=== PATIENT | female | born 1985 | race Two or more races ===

== ENCOUNTER 2016-11-11 15:46 | Emergency (ER) | payer OTHER ==
[~2016-11-11] VITALS: Ht 167.6 cm; Wt 87.8 kg
[~2016-11-11 15:46] MED LIST: CIPRO500 MG PO; FLAGYL500 MG PO; MACROBID100 MG PO; MIRALAX255 GM PO; Motrin PO; NORCO 5/3251 TABLET PO; PRENATABS RX T1 EACH; Percocet 5/325,Endoc PO; ZOFRAN ODT4 MG PO
[2016-11-11 16:31] LABS: HEMATOCRIT 37.1 % (36.0-46.0); MCH 30.3 PG (29.0-34.0); MCHC 33.7 G/DL (30.0-36.0); MCV 89.8 FL (83-99); MEAN PLAT.VOLUME 10.3 uM^3 (9.5-12.4); PLATELET COUNT 224 K/uL (156-360); RBC DIS.WIDTH-CV 12.9 % (11.8-14.6); RBC DIS.WIDTH-SD 41.8 % (39-53); RED BLOOD COUNT 4.13 M/uL (3.80-5.20); WHITE BLOOD COUNT 7.7 K/uL (4.1-10.2)
[2016-11-11 16:41] LABS: CHLORIDE 109 mEq/L (99-109); SODIUM 142 mEq/L (136-147)
[2016-11-11 16:43] LABS: GLUCOSE 81 mg/dL (70-99)
[2016-11-11 16:44] LABS: ANION GAP 10 MEQ/L (2-14)
[2016-11-11 16:45] LABS: TOTAL BILIRUBIN 0.3 mg/dL (0.0-1.0)
[2016-11-11 16:46] LABS: ALKALINE PHOSPHATASE 60 IU/L (3-129)
[2016-11-11 16:47] LABS: GFR ESTIMATE (CALCULATED) > 59 mL/min/
[2016-11-11 16:48] LABS: UREA NITROGEN (BUN) 9 mg/dL (9-23)
[2016-11-11 16:58] LABS: QUANTITATIVE HCG < 4.0 MIU/ML
[2016-11-11] MEDS ORDERED: TRINESSA LO TA1 EACH PO (16:58)
[2016-11-11 18:04] LABS: ADD MIUA? YES; BILIRUBIN NEGATIVE; BLOOD NEGATIVE; COLOR YELLOW ((YELLOW)); GLUCOSE (STRIP) NEGATIVE; KETONES NEGATIVE; LEUKOCYTES NEGATIVE; NITRITE NEGATIVE; PROTEIN (STRIP) NEGATIVE; SPECIFIC GRAVITY 1.015 (1.000-1.030); UROBILINOGEN 0.2 MG/DL (0.2-1.0)
[2016-11-11 18:06] LABS: BACTERIA NONE SEEN /HPF; EPITHELIAL CELLS 1+ /HPF; MUCUS TRACE /LPF; RED BLOOD CELLS 0-5 /HPF (0-5); UCUL ADDED? NO; WHITE BLOOD CELLS 0-5 /HPF (0-5)
[2016-11-11] MEDS ORDERED: MUCINEX FAST-M1 EAC2 PO (18:38)
[2016-11-11] MEDS ORDERED: BENTYL20 MG PO (18:38)
[2016-11-11] MEDS ORDERED: ZOFRAN ODT4 MG PO (18:38)
[2016-11-11 18:52] VITALS: BP 160/91
== END 2016-11-11 18:42 | disposition home or self-care (01) ==
LOC: EME 15:46
DX: J06.9 Acute upper respiratory infection, unspecified (principal); R10.32 Left lower quadrant pain; F17.200 Nicotine dependence, unspecified, uncomplicated
CPT/HCPCS: 80053; 81003; 84702; 85027; 87651 90; 99281; 99284